=== PATIENT | female | born 1990 | race Caucasian/White ===

== ENCOUNTER 2023-12-08 19:50 | Emergency (ER) | payer OTHER ==
[~2023-12-08] VITALS: Ht 175.3 cm; Wt 86.2 kg
[2023-12-08] MEDS: LIDOCAINE HCL 1% 20 ML VIAL INJ SCH (20:00)
[2023-12-08] MEDS: teTANUS/diphthERIA TOXOID [ADULT] 0.5 ML VIAL IM ONE (20:15)
--- NOTE | 2023-12-08 21:37 | HMCIMG ---
TIBIA/FIBULA 2VWS LT INDICATION: laceration r/o foreign body TECHNIQUE: TIBIA/FIBULA 2VWS LT. FINDINGS/IMPRESSION: No displaced fracture or dislocation is seen. Correlate clinically. There is a diffuse soft tissue swelling. Study degraded due to overlying bandage. No radiopaque foreign body is identified.
--- NOTE | 2023-12-08 21:39 | HMCIMG ---
TIBIA/FIBULA 2VWS LT INDICATION: r/o foreign body TECHNIQUE: TIBIA/FIBULA 2VWS LT. FINDINGS/IMPRESSION: No displaced fracture or dislocation is seen. Correlate clinically. There is anterior soft tissue swelling/laceration. No radiopaque foreign body is identified.
[2023-12-08] MEDS: cefTRIAXone 1G VIAL IM ONE (21:50)
[2023-12-08 21:58] VITALS: BP 120/78; PULSE 98; RESP 20; TEMP 98.4; O2SAT 100
--- NOTE | 2023-12-08 22:07 | ERN ---
General Chief Complaint: Laceration/Avulsion Stated Complaint: LACERATION Time Seen by MD: 19:52 Time Seen by Midlevel: 19:52 Source: patient History of Present Illness Initial Comments Patient is a 33-year-old female presenting for evaluation of a laceration to her left lower extremity. Patient states she had stood up on a wooden chair when it broke and she fell straight down the chair. She reports sustaining a laceration to her tib-fib area. She also reports pain to her left ankle and left foot. No other injury is reported at this time. Past Medical History Past Medical History: No Pertinent History Past Surgical History: Other Surgical History Other: ECTOPIC Female( History) LMP: Dec 01, 2023 ROS Dictation CONSTITUTIONAL: Negative except for HPI HEAD/FACE: Negative except for HPI EENT: Negative except for HPI RESPIRATORY: Negative except for HPI GASTROINTESTINAL/ABDOMINAL: Negative except for HPI GENITOURINARY: Negative except for HPI MUSCULOSKELETAL: Negative except for HPI INTEGUMENTARY: Negative except for HPI NEUROLOGICAL/PSYCH: Negative except for HPI HEMATOLOGIC/LYMPHATIC: Negative except for HPI All Systems Negative, Except as noted above. 13 point review of systems assessed and all negative except for above. Physical Exam Physical Exam Dictation Vital Signs reviewed General Appearance: Alert, oriented x 3, no acute distress, well developed, nourished. Head and Face: non-traumatic. Eyes: PERRL, pink conjunctivas, eyelid no trauma, anterior chamber with arcus senilis. Ears: Pinnas intact and no signs of trauma or erythema ear canals clear and no discharge TM no erythema Nose: No discharge, no bleeding. Oropharynx: Mouth normal, tongue pink, pharynx clear,no erythema, tonsils no exudates, no abscesses noted, mucous membrane moist Neck: Supple, non-tender, no thyromegaly, no masses, no JVD, no bruits Breast:Deferred Chest:No tenderness, no crepitus, no paradoxical movement, no retractions Lungs:Clear, well-ventilated, symmetric, no rales, no wheezing, no rhonchi, no stridor, good breath sounds bilaterally Heart: Regular rate, regular rhythm, no murmur, no gallops Vascular: no peripheral edema, Abdomen: Soft, positive bowel sounds, nondistended, no guarding, nontender, no rebound, no masses no hepatomegaly, no splenomegaly, no Collisn's sign, no hernias. Rectal: Deferred Genital: Deferred Neurological: Normal speech, motor function intact, sensory function intact Musculoskeletal: Neck nontender, full range of motion, back nontender, full range of motion, Extremities: Tenderness to the left lateral malleolus Skin: 10 cm linear superficial laceration to the left lower extremity over the tib-fib area Lymphatic: Deferred MDM MDM: 33-year-old female presenting with a laceration to the left lower extremity. On exam patient has a 10 cm linear laceration that appears to be superficial. An x-ray of the left tib-fib was obtained to rule out any foreign body or fracture. Patient also reports landing on her left foot. On physical examination there is tenderness and swelling to the left lateral malleolus. X- ray of the left foot and ankle reveal no acute fracture. Laceration was successfully repaired with 12 simple interrupted 3-0 Ethilon sutures. No complications. Patient tolerated the procedure well. Tetanus vaccination was administered and patient was discharged home with wound care precautions. She is to follow up with your PCP or return to the ER in 7-10 days for suture removal. Patient is agreeable with this plan and all questions were answered. Differential diagnosis: Laceration, abrasion, fracture, ankle sprain There are no social concerns with this patient. Prescription drug management Prescriptions will include: None Medical management and examination interpretation discussions were had by me with other qualified healthcare professionals as indicated for the patient's care. ED Course Orders Procedure Category Date Status Time Tibia/Fibula 2vws Lt RAD 12/08/23 Resulted 19:57 Tetanus,Diphtheria PHA 12/08/23 Complete Tox [Adult] (Diphther 20:00 Lidocaine Hcl 1% 20ml PHA 12/08/23 Complete Vial (Lidocaine Hc 20:00 Laceration Tray Set CPOE 12/08/23 Transmitted Up (Er) 19:57 Tibia/Fibula 2vws Lt RAD 12/08/23 Resulted 20:43 Ankle Comp 3vws Lt RAD 12/08/23 Taken 21:44 Foot Limited 2vws Lt RAD 12/08/23 Taken 21:44 Ceftriaxone 1g Vial PHA 12/08/23 Complete (Rocephine 1g Inj) 22:00 Current Medications Medications (Trade) Dose Ordered Sig/Beatriz Route PRN Reason Start Time Stop Time Status Last Admin Dose Admin Ceftriaxone Sodium (ROCEphine 1G INJ) 1 gm ONCE ONCE IM 12/08/23 22:00 12/08/23 22:01 DC 12/08/23 21:50 Lidocaine HCl (Lidocaine HCl 1% 20ml Vial) ONCE INJ 12/08/23 20:00 12/08/23 22:40 DC Tetanus/ Diphtheria Toxoids Adsorbed (DiphthERIA-teTANUS TOXOID [ADULT]/ DECAVAC) 0.5 ml ONCE ONCE IM 12/08/23 20:00 12/08/23 20:01 DC 12/08/23 20:15 Vital Signs Date Time Temp Pulse Resp B/P (MAP) Pulse Ox O2 Delivery O2 Flow Rate FiO2 12/08/23 21:58 98.4 98 20 120/78 100 Room Air* 0 21 12/08/23 19:52 97.7 100 20 124/97 100 Room Air Laceration/Wound Repair Laceration/Wound Repair : Wound Location: lower extremity Wound Length (cm): 10 Wound's Depth, Shape: superficial Wound Explored: clean Irrigated w/ Saline (ccs): 50 Betadine Prep?: Yes Anesthesia: 1% Lidocaine Volume Anesthetic (ccs): 3 Wound Debrided: moderate Wound Repaired With: sutures Suture Size/Type: 3:0, proline Number of Sutures: 12 Layer Closure?: No Sterile Dressing Applied?: Yes DX & DISP Disposition: Discharge Departure Impression: Primary Impression: Laceration of left lower leg Additional Impression: Left ankle sprain Condition: Stable Additional Instructions: Please keep area clean and dry. Do not wet area for the 1st 24 hours. After 24 hours you may wet the area but just make sure to keep it clean. Your foot and ankle x-ray are negative for any acute fracture. Follow up with your primary care provider or return to the ER in 7-10 days for suture removal. If you develop any redness or abnormal discharge please report to the ER for repeat evaluation. Referrals: SELF,REFERRAL (PCP) I have reviewed the case, and I agree with, Diagnosis and Plan I performed the substantive portion of the visit. I have reviewed and personally made and approve the management plan that is documented in the note by myself or the KEISHA. I acknowledge for responsibility for the patient's management plan. LUKASZ NAPIER Dec 08, 2023 22:07
--- NOTE | 2023-12-09 08:28 | HMCIMG ---
ANKLE COMP 3VWS LT REASON: swelling/pain TECHNIQUE: 3 views were obtained. FINDINGS: There is no evidence of fracture or dislocation. There is no joint effusion. The soft tissues appear unremarkable. There is no evidence of a radiopaque foreign body. IMPRESSION: No acute findings.
--- NOTE | 2023-12-09 08:33 | HMCIMG ---
FOOT LIMITED 2VWS LT REASON: swelling/pain TECHNIQUE: 2 views were obtained. FINDINGS: There is no evidence of fracture or dislocation. There is no joint effusion. The soft tissues appear unremarkable. There is no evidence of a radiopaque foreign body. IMPRESSION: No acute findings.
== END 2023-12-08 22:39 | disposition home or self-care (01) ==
LOC: EDH 19:50
DX: S81.812A Laceration without foreign body, left lower leg, initial encounter (principal); S93.402A Sprain of unspecified ligament of left ankle, initial encounter; W07.XXXA Fall from chair, initial encounter; Y93.89 Activity, other specified; Y92.89 Other specified places as the place of occurrence of the external cause; Y99.8 Other external cause status
CPT/HCPCS: 99284; 90714; 73610; 73620; 73590 ×2; 90471; 12004; 96372; J0696